=== PATIENT | female | born 1960 | race Caucasian/White ===

== ENCOUNTER 2020-10-30 10:36 | Inpatient (IN) | payer MEDICARE ==
[~2020-10-30] VITALS: Ht 165.1 cm; Wt 76.2 kg
[~2020-10-30 10:36] MED LIST: AUGMENTIN 875-1 EACH PO; COMBIVENT0.074 GM/I INH; ELIQUIS5 MG PO; LISINOPRIL10 MG PO; MAGOX 400400 MG PO; METFORMIN ER G500 MG PO; NORCO 5-325 TA1 EACH PO; PEPCID20 MG PO; POTASSIUM CHLO10 ME1 PO; PREDNISONE 20 M20 MG PO; PROVENTIL HFA6.7 GM INH; SOTALOL120 MG PO; SOTALOL80 MG PO
[2020-10-30] MEDS ORDERED: LIPITOR40 MG PO (16:13)
[2020-10-30] MEDS ORDERED: IPRAT-ALBUT 0.5-3 ML INH (16:14)
[2020-10-30] MEDS ORDERED: LASIX20 MG PO (16:14)
[2020-10-30] MEDS ORDERED: CARDIZEM CD180 MG PO (16:14)
[2020-10-30] MEDS ORDERED: SPIRONOLACTONE25 MG PO (16:15)
[2020-10-30 16:20] LABS: HEMOGLOBIN 12.5 gm/dl (12.3-15.3); RED BLOOD COUNT 4.11 M/UL (4.00-5.10); WHITE BLOOD COUNT 7.5 K/UL (4.5-11.0)
[2020-10-30] MEDS ORDERED: LEVEMIR100 UNIT/1 SQ (16:21)
[2020-10-30 16:50] LABS: BUN/CREATININE RATIO 20 (0-10)
[2020-10-31 05:40] LABS: BUN/CREATININE RATIO 17 (0-10)
[2020-11-02 06:02] LABS: RED BLOOD COUNT 4.28 M/UL (4.00-5.10); WHITE BLOOD COUNT 7.4 K/UL (4.5-11.0)
[2020-11-02 06:23] LABS: BUN/CREATININE RATIO 17 (0-10)
[2020-11-02 15:18] LABS: HEMOGLOBIN 12.1 gm/dl (12.3-15.3); RED BLOOD COUNT 3.95 M/UL (4.00-5.10); WHITE BLOOD COUNT 9.8 K/UL (4.5-11.0)
[2020-11-03 05:16] LABS: HEMOGLOBIN 11.3 gm/dl (12.3-15.3); RED BLOOD COUNT 3.73 M/UL (4.00-5.10); WHITE BLOOD COUNT 7.4 K/UL (4.5-11.0)
[2020-11-03 05:40] LABS: BUN/CREATININE RATIO 20 (0-10)
[2020-11-04 04:38] LABS: HEMOGLOBIN 10.2 gm/dl (12.3-15.3); RED BLOOD COUNT 3.36 M/UL (4.00-5.10); WHITE BLOOD COUNT 7.5 K/UL (4.5-11.0)
[2020-11-05 01:48] LABS: RED BLOOD COUNT 3.29 M/UL (4.00-5.10); WHITE BLOOD COUNT 8.8 K/UL (4.5-11.0)
[2020-11-05 02:39] LABS: BUN/CREATININE RATIO 31 (0-10)
--- NOTE | 2020-11-05 15:57 | NUR ---
PATIENTS HEART RATE FLUNCTUATED BETWEEN 130-180 FOR A PERIOD OF TIME AND DR. CHIU WAS NOTIFIED. DR. CHIU PUT IN A ONE TIME ORDER OF 5MG IV PUSH LOPRESSOR FOR HEART RATE. DR. COX CAME TO BEDSIDE AT 1530 WHILE I PUSHED LOPRESSOR SLOWLY. DR. COX DISCUSSED WITH PATIENT ABOUT POSSIBLE INTERVENTIONS FOR PATIENTS INCREASED HEART RATE AND RYTHEM. DR. COX STATED HE WOULD MAKE SOME CHANGES TO PATIENTS MEDICATIONS AND REEVALUATE TOMORROW.
[2020-11-06 05:21] LABS: HEMOGLOBIN 10.8 gm/dl (12.3-15.3); WHITE BLOOD COUNT 6.8 K/UL (4.5-11.0)
[2020-11-06 05:33] LABS: RED BLOOD COUNT 3.62 M/UL (4.00-5.10)
[2020-11-06 05:58] LABS: BUN/CREATININE RATIO 19 (0-10)
[2020-11-07 02:27] LABS: HEMOGLOBIN 10.6 gm/dl (12.3-15.3); RED BLOOD COUNT 3.46 M/UL (4.00-5.10); WHITE BLOOD COUNT 6.6 K/UL (4.5-11.0)
[2020-11-07 02:49] LABS: BUN/CREATININE RATIO 27 (0-10)
--- NOTE | 2020-11-07 11:41 | NUR ---
11:05 DR COX AND TEAM IN ROOM FOR DENNIS WITH CARDIOVERSION 11:07 THROAT SPRAYED TO NUMB, PACER PADS PLACED ON PT 11:10 LIDOCAINE GIVEN BY ANESTHESIOLOGY 11:11 PROPOFOL GIVEN BY ANETHSIOLOGY 11:12 DENNIS PART OF PROCEDURE STARTED 11:14 DENNIS PROCEDURE FINISHED 11:14 PT SHOCKED AT 50J, SHOCKED A SECOND TIME AT 100J, PT IN A-PACED RYTHM 11:25 PT WAKING UP AND TALKING, WILL CONTINUE TO MONITOR
[2020-11-08 02:30] LABS: HEMOGLOBIN 10.4 gm/dl (12.3-15.3); RED BLOOD COUNT 3.42 M/UL (4.00-5.10); WHITE BLOOD COUNT 6.6 K/UL (4.5-11.0)
[2020-11-08 02:49] LABS: BUN/CREATININE RATIO 19 (0-10)
[2020-11-08] MEDS ORDERED: JANTOVEN1 MG PO (09:52)
[2020-11-08] MEDS ORDERED: AMOX TR-K CLV1 EAC4 PO (09:52)
[2020-11-08] MEDS ORDERED: GLUCOPHAGE 500500 MG PO (09:56)
[2020-11-08] MEDS ORDERED: HYDROCODON-ACE1 EAC4 PO (12:43)
== END 2020-11-08 15:10 | disposition home health service (06) | DRG 270 ==
LOC: MED SURG 4 14:25 → PROG CARE 14:25 → CCU 11-02 13:40 → PROG CARE 11-03 14:34
PROVIDERS: Family Medicine; Surgery; ADMIT Internal Medicine Infectious Disease
PROC: 8E0ZXY6 Isolation (ICD-10-PCS; 2020-10-30)
PROC: 04CL3ZZ Extirpation of Matter from Left Femoral Artery, Percutaneous Approach (ICD-10-PCS; 2020-11-02)
PROC: 04CK3ZZ Extirpation of Matter from Right Femoral Artery, Percutaneous Approach (ICD-10-PCS; 2020-11-02)
PROC: 047L3ZZ Dilation of Left Femoral Artery, Percutaneous Approach (ICD-10-PCS; 2020-11-02)
PROC: 047J3ZZ Dilation of Left External Iliac Artery, Percutaneous Approach (ICD-10-PCS; 2020-11-02)
PROC: 047N3ZZ Dilation of Left Popliteal Artery, Percutaneous Approach (ICD-10-PCS; 2020-11-02)
PROC: 047Q3ZZ Dilation of Left Anterior Tibial Artery, Percutaneous Approach (ICD-10-PCS; 2020-11-02)
PROC: 047S3ZZ Dilation of Left Posterior Tibial Artery, Percutaneous Approach (ICD-10-PCS; 2020-11-02)
PROC: 0Y6T0Z1 Detachment at Right 3rd Toe, High, Open Approach (ICD-10-PCS; 2020-11-02)
PROC: B41D1ZZ Fluoroscopy of Aorta and Bilateral Lower Extremity Arteries using Low Osmolar Contrast (ICD-10-PCS; 2020-11-02)
PROC: 3E03317 Introduction of Other Thrombolytic into Peripheral Vein, Percutaneous Approach (ICD-10-PCS; 2020-11-02)
PROC: 047K3Z1 Dilation of Right Femoral Artery using Drug-Coated Balloon, Percutaneous Approach (ICD-10-PCS; 2020-11-02)
PROC: 047H3Z1 Dilation of Right External Iliac Artery using Drug-Coated Balloon, Percutaneous Approach (ICD-10-PCS; 2020-11-02)
PROC: 047R3ZZ Dilation of Right Posterior Tibial Artery, Percutaneous Approach (ICD-10-PCS; 2020-11-02)
PROC: 047P3ZZ Dilation of Right Anterior Tibial Artery, Percutaneous Approach (ICD-10-PCS; 2020-11-02)
PROC: 047M3ZZ Dilation of Right Popliteal Artery, Percutaneous Approach (ICD-10-PCS; 2020-11-02)
PROC: B24BZZ4 Ultrasonography of Heart with Aorta, Transesophageal (ICD-10-PCS; principal; 2020-11-07)
PROC: 5A2204Z Restoration of Cardiac Rhythm, Single (ICD-10-PCS; 2020-11-07)
DX: E11.52 Type 2 diabetes mellitus with diabetic peripheral angiopathy with gangrene (principal); G92 Toxic encephalopathy; I42.2 Other hypertrophic cardiomyopathy; I48.19 Other persistent atrial fibrillation; J96.11 Chronic respiratory failure with hypoxia; J96.12 Chronic respiratory failure with hypercapnia; Z20.822 Contact with and (suspected) exposure to COVID-19; I48.0 Paroxysmal atrial fibrillation; L03.031 Cellulitis of right toe; E78.5 Hyperlipidemia, unspecified; I25.10 Atherosclerotic heart disease of native coronary artery without angina pectoris; D64.9 Anemia, unspecified; F17.210 Nicotine dependence, cigarettes, uncomplicated; T42.75XA Adverse effect of unspecified antiepileptic and sedative-hypnotic drugs, initial encounter; Z79.01 Long term (current) use of anticoagulants; Z95.810 Presence of automatic (implantable) cardiac defibrillator; Z79.4 Long term (current) use of insulin; Z83.3 Family history of diabetes mellitus; Z98.51 Tubal ligation status; Z90.710 Acquired absence of both cervix and uterus; Z88.5 Allergy status to narcotic agent; Z99.81 Dependence on supplemental oxygen; I25.2 Old myocardial infarction
CPT/HCPCS: 36415; 71046; 75630; 76000; 80048; 80053; 82550; 82553; 82962; 83036; 83735; 84443; 84484; 85025; 85610; 85730; 86850; 86900; 86901; 93005; 93312; 93320; 94640; 94760; 97161; C1714; C1725; C1769; C1887; C2623; J0690; J1100; J1644; J2001; J2060; J2250; J2270; J2405; J2543; J2704; J2720; J2795; J3010; J3370; J3475; J7030; J7040; J7050; J7120; Q9962; U0002

== ENCOUNTER 2020-12-28 19:15 | Inpatient (IN) | payer MEDICARE, MEDICAID ==
[~2020-12-28] VITALS: Ht 165.1 cm; Wt 75.5 kg
[~2020-12-28 19:15] MED LIST changes: +AMOX TR-K CLV1 EAC4 PO; +CARDIZEM CD180 MG PO; +GLUCOPHAGE 500500 MG PO; +HYDROCODON-ACE1 EAC4 PO; +IPRAT-ALBUT 0.5-3 ML INH; +JANTOVEN1 MG PO; +LASIX20 MG PO; +LEVEMIR100 UNIT/1 SQ; +LIPITOR40 MG PO; +SPIRONOLACTONE25 MG PO
[2020-12-28] MEDS ORDERED: SOTALOL80 MG PO ×2 (22:38→23:06)
[2020-12-28] MEDS ORDERED: ASPIRIN CHEWABL81 MG PO (22:57)
[2020-12-28] MEDS ORDERED: CARDIZEM30 MG PO (23:00)
[2020-12-28] MEDS ORDERED: DIGITEK125 MCG PO (23:01)
[2020-12-28] MEDS ORDERED: JARDIANCE10 MG PO (23:02)
[2020-12-28] MEDS ORDERED: LEVOFLOXACIN500 MG PO (23:02)
[2020-12-28] MEDS ORDERED: OXYCODON-ACETA1 EAC1 PO (23:03)
[2020-12-28] MEDS ORDERED: XARELTO20 MG PO (23:04)
[2020-12-28] MEDS ORDERED: STIOLTO RESPIMAT4 GM INH (23:05)
[2020-12-28] MEDS ORDERED: COREG12.5 MG PO (23:09)
[2020-12-28 23:39] LABS: HEMOGLOBIN 13.6 gm/dl (12.3-15.3); RED BLOOD COUNT 4.48 M/UL (4.00-5.10); WHITE BLOOD COUNT 9.7 K/UL (4.5-11.0)
[2020-12-28 23:50] LABS: BUN/CREATININE RATIO 25 (0-10)
[2020-12-29 00:49] LABS: RED BLOOD COUNT 4.33 M/UL (4.00-5.10); WHITE BLOOD COUNT 9.6 K/UL (4.5-11.0)
[2020-12-29 01:17] LABS: BUN/CREATININE RATIO 27 (0-10)
== END 2020-12-29 15:50 | disposition home or self-care (01) | DRG 310 ==
LOC: PROG CARE 19:15
PROVIDERS: Internal Medicine; ADMIT Internal Medicine
DX: I48.0 Paroxysmal atrial fibrillation (principal); R07.9 Chest pain, unspecified; I42.2 Other hypertrophic cardiomyopathy; I25.10 Atherosclerotic heart disease of native coronary artery without angina pectoris; I47.1 Supraventricular tachycardia; J44.9 Chronic obstructive pulmonary disease, unspecified; Z20.822 Contact with and (suspected) exposure to COVID-19; E11.9 Type 2 diabetes mellitus without complications; Z89.421 Acquired absence of other right toe(s); Z79.4 Long term (current) use of insulin; Z72.0 Tobacco use; I25.2 Old myocardial infarction; Z79.01 Long term (current) use of anticoagulants; Z98.51 Tubal ligation status; Z90.710 Acquired absence of both cervix and uterus; Z95.810 Presence of automatic (implantable) cardiac defibrillator; Z83.3 Family history of diabetes mellitus; Z88.6 Allergy status to analgesic agent
CPT/HCPCS: 36415; 80048; 82550; 82553; 82962; 84484; 85025; 93005